=== PATIENT | male | born 1985 | race Caucasian/White ===

== ENCOUNTER → 2023-01-23 11:40 | Outpatient (BNVA) | payer BC, SELFPAY | PROVIDERS: Visit Provider Nurse Practitioner Family | DX: K57.92 Diverticulitis of intestine, part unspecified, without perforation or abscess without bleeding (principal); R10.32 Left lower quadrant pain; R10.819 Abdominal tenderness, unspecified site | CPT/HCPCS: 85025 ==

== ENCOUNTER 2023-02-03 06:37 | Outpatient (CLI) | payer BC, SELFPAY ==
[2023-02-03] MEDS: iohexol 350 mg/mL 500 mL Btl (per mL) IV (07:47)
[2023-02-03] MEDS: iohexol 350 mg/mL 500 mL Btl (per mL) PO (07:48)
--- NOTE | 2023-02-03 08:00 | CT_ITS ---
WS: [id number] CT ABDOMEN AND PELVIS WITH CONTRAST HISTORY: Severe LEFT lower quadrant pain. TECHNIQUE: Imaging performed of the abdomen and pelvis with IV contrast. Single phase imaging of the abdomen. Coronal and sagittal reformats are submitted. All CT scans at [facility] use at [address] one of these dose optimization techniques: automated exposure control; mA and/or kV adjustment per patient size (includes targeted exams where dose is matched to clinical indication); or iterative re construction. IV CONTRAST: Omnipaque 350; 100 mL IV. Oral contrast: Yes. DLP: 510.93 mGy.cm COMPARISON: None available. Lower thorax: Lung bases are clear. Heart is normal size. Small hiatal hernia. Liver/biliary system: Normal size liver. Very vague, indeterminate 7 mm low-attenuation lesion in the RIGHT lobe. This is towards the tip of the liver. Very nonspecific. The portal vein is normal. Gallbladder: Normal. No gallstones or wall thickening. No pericholecystic fluid. Pancreas: Normal size pancreas. There are 2 subcentimeter low-attenuation lesions closely associated with the pancreatic duct. These are both within the body of the pancreas. No pancreatic duct dilatati on. Spleen: Normal size spleen. No mass or infarct. Adrenal glands: Normal. Right kidney: Normal. Left kidney: Too small to characterize cortical hypodensity lower pole. No solid mass or obstruction. Aorta: Normal. Lymphadenopathy: None. Free fluid: None. GI tract: Normal stomach and small bowel. Normal appendix. Marked fecal retention throughout the enti re colon. Beginning towards the sigmoid there is marked circumferential wall thickening with numerous diverticula. No adjacent inflammation. Abdominal wall: Unremarkable abdominal wall. No hernia. Pelvis: No free fluid or adenopathy within the pelvis. Bones: Unremarkable. CT/CT abdomen pelvis w con* [id number] IMPRESSION: 1. Long segment circumferential wall thickening the sigmoid with numerous dive rticula. Most typical for chronic due to diverticulitis. No evidence for acute diverticulitis at this time. Colonoscopy may be of benefit to exclude malignanc y also. No adjacent adenopathy or abscess. 2. There are 2 very small low-attenuation nodules in the pancreatic body with the largest measuring 6 mm. Favor IPMN. Recommend follow-up pancreatic CT, patrice rial and portal venous stasis) in 3-4 months. Will need to document long-term s tability. The 7 mm low-attenuation nodule in the liver can be reevaluated at at time also.
== END 2023-02-03 06:38 | disposition home or self-care (01) ==
LOC: RAD 06:40
PROVIDERS: Visit Provider Nurse Practitioner Family
DX: K57.92 Diverticulitis of intestine, part unspecified, without perforation or abscess without bleeding (principal); R10.32 Left lower quadrant pain; R10.819 Abdominal tenderness, unspecified site; D49.0 Neoplasm of unspecified behavior of digestive system
CPT/HCPCS: 74177; Q9967

== ENCOUNTER 2024-08-26 07:35 | Outpatient (CLI) | payer SELFPAY ==
--- NOTE | 2024-08-26 07:45 | US_ITS ---
WS: [id number] ULTRASOUND SOFT TISSUES upper LEFT abdomen, just below the breast. HISTORY: R22.2 - Localized swelling, mass and lump, trunk COMPARISON: None available. TECHNIQUE: 2-D and color Doppler imaging is submitted. Ultrasound directed to the area of interest. There is a small soft tissue nodule which is nearly isoe choic to the adjacent soft tissue. Nodule measures 1.3 x 1.7 x 0.5 cm. This is an ovoid maxilla with central linear echogenicity. US/US soft tissue/extremity [id number] IMPRESSION: Probable lymph node corresponding to the palpable area along the inferior LEFT breast.
== END 2024-08-26 07:36 | disposition home or self-care (01) ==
PROVIDERS: PCP Nurse Practitioner Family; Visit Provider Nurse Practitioner Family
DX: R22.2 Localized swelling, mass and lump, trunk (principal)
CPT/HCPCS: 76882